=== PATIENT | female | born 1945 | race Caucasian/White ===

== ENCOUNTER 2020-03-08 15:20 | Emergency (ER) | payer MEDICARE ==
[~2020-03-08] VITALS: Ht 170.2 cm; Wt 100.0 kg
--- NOTE | 2020-03-08 15:32 | PHYS DOC ---
General Adult EDM: Chief Complaint: MULTIPLE TRAUMA/FALL HPI: HPI: Patient is a 75-year-old female who presents with head injury after a fall today out of her truck. Patient states "I was getting in the truck my pants were too tight so I tried to lift my leg and then I fell backwards". Patient has midl ine, hematoma to posterior head. Patient takes a low-dose aspirin daily. Patient denies loss of consciousness, dizziness. Patient denies back pain or midline neck tenderness. Patient unsure of last tetanus vaccination. (JAIRO OVALLE PIPING DRAFTER) Review of Systems: Review of Systems: Constitutional: Denies fever or chills Eyes: Denies change in visual acuity HENT: Denies nasal congestion or sore throat Respiratory: Denies cough or shortness of breath Cardiovascular: Denies chest pain or edema GI: Denies abdominal pain, nausea, vomiting, bloody stools or diarrhea : Denies dysuria Musculoskeletal: Denies back pain or joint pain Integument: Denies rash Neurologic: Denies headache, focal weakness or sensory changes Endocrine: Denies polyuria or polydipsia Lymphatic: Denies swollen glands Psychiatric: Denies depression or anxiety (JAIRO OVALLE PIPING DRAFTER) Physical Exam: PE: Constitutional: Well developed, well nourished, no acute distress, non-toxic appearance. [] HENT: Normocephalic, atraumatic, bilateral external ears normal, oropharynx moist, no oral exudates, nose normal. [] Eyes: PERRLA, EOMI, conjunctiva normal, no discharge. [] Neck: Normal range of motion, no tenderness, supple, no stridor. [] Cardiovascular:Heart rate regular rhythm, no murmur [] Lungs & Thorax: Bilateral breath sounds clear to auscultation [] Abdomen: Bowel sounds normal, soft, no tenderness, no masses, no pulsatile masses. [] Skin: Hematoma midline posterior head Back: No tenderness, no CVA tenderness. [] Extremities: No tenderness, no cyanosis, no clubbing, ROM intact, no edema. [] Neurologic: Alert and oriented X 3, normal motor function, normal sensory function, no focal deficits noted. [] Psychologic: Affect normal, judgement normal, mood normal. [] (JAIRO OVALLE PIPING DRAFTER) EKG: EKG: [] (JAIRO OVALLE APRN) Radiology/Procedures: Radiology/Procedures: []CT HEAD AND C-SPINE WO Clinical indications: Fall with head injury. NONCONTRAST HEAD CT COMPARISON: None available. Technique: Noncontrast axial cross sectional scanning of the head was performed. PQRS compliance Statement One or more of the following individualized dose reduction techniques were utilized for this study: 1. Automated exposure control 2. Adjustment of the mA and/or kV according to patient size 3. Use of iterative reconstruction technique Findings: No acute intracranial hemorrhage or midline shift or mass-effect or hydrocephalus or extra-axial fluid collection is seen. Moderate-sized area of encephalomalacia is seen involving the medial left frontal lobe with an overlying craniotomy. This may be secondary to old infarct or old trauma or surgical resection of a tumor. There is a moderate-sized subcutaneous soft tissue hematoma of the posterior right parietal region containing air consistent with an associated laceration injury. No skull fracture or pneumocephalus is seen. No opacification of the mastoid sinuses or the middle ear cavities or the paranasal sinuses is seen. The maxillary sinuses are not completely seen in this study. IMPRESSION: No acute intracranial abnormality is seen. CERVICAL SPINE CT WITHOUT CONTRAST TECHNIQUE: Noncontrast helical CT scanning of the cervical spine was performed. Multiplanar 2-D reconstructions were generated. FINDINGS: No acute fracture or discitis or lytic process is seen. Grade 1 anterolisthesis of C3-4 and C4-5 and T1-T2 is evident. There is severe degenerative disc space narrowing and endplate spurring at C5-6 and C6-7 and C7- T1 and T1-T2. Degenerative facet arthropathy is evident throughout the cervical spine. No perching of facet joints is seen. The spinous processes are intact. IMPRESSION: No acute fracture. Degenerative cervical spondylosis. Electronically signed by: Lei Aleman MD (03/08/2020 4:15 PM) [id number] (JAIRO OVALLE APRN) Heart Score: Risk Factors: Risk Factors: DM, Current or recent (<one month) smoker, HTN, HLP, family history of CAD, obesity. Risk Scores: Score 0 - 3: 2.5% MACE over next 6 weeks - Discharge Home Score 4 - 6: 20.3% MACE over next 6 weeks - Admit for Clinical Observation Score 7 - 10: 72.7% MACE over next 6 weeks - Early Invasive Strategies (JAIRO OVALLE APRN) Course & Med Decision Making: Course & Med Decision Making Pertinent Labs and Imaging studies reviewed. (See chart for details) [] 75-year-old female presents with hematoma to posterior head after fall getting into her truck. Bleeding controlled upon arrival. Head CT ordered to rule out intracranial hemorrhage or skull fracture. Denies midline neck tenderness or back pain. Denies headache, nausea, vomiting. CT head and cervical spine came back negative for intracranial hemorrhage or skull fracture. Patient was given Tdap. Patient is hemodynamically stable, alert and oriented x4.Denies any symptoms or pain at this time. Will discharge patient to home with . Explained to patient symptoms to look for and need to return to ER. (JAIRO OVALLE APRN) Course & Med Decision Making I oversaw care of patient while in ER. I reviewed case in its' entirety with CARE MANAGEMENT COORDINATOR. I agree with note, plan of care and dispo (JOSE LUIS ANGELES DO) Girish Disclaimer: Girish Disclaimer: This electronic medical record was generated, in whole or in part, using a voice recognition dictation system. (JAIRO OVALLE APRN) Departure Departure: Impression: Primary Impression: Head trauma Qualified Codes: S09.90XA - Unspecified injury of head, initial encounter Disposition: 01 DC HOME SELF CARE/HOMELESS Condition: STABLE Referrals: JOSE LUIS ANGELES DO Patient Instructions: Head Injury, Adult, [id number] Additional Instructions: You are seen in the emergency room today for head injury after falling backwards from your truck. Your CT of your head and cervical spine was negative for any intracranial hemorrhaging or skull fractures. Please return to the emergency room with any worsening symptoms or concerns. Follow-up with your primary care physician if needed for unresolved symptoms. Take Tylenol and ibuprofen for discomfort as you may be sore after your fall. You can also apply ice to the area to help with swelling and discomfort. EMERGENCY DEPARTMENT GENERAL DISCHARGE INSTRUCTIONS Thank you for coming to [facility] (ED) today and trusting us with you care. We trust that you had a positivie experience in our Emergency Department. If you wish to speak to the department management, you may call the director at [phone]. YOUR FOLLOW UP INSTRUCTIONS ARE FOLLOWS: 1. Do you have a private Doctor? If you do not have a private doctor, please ask for a resource list of physicians or clinics that may be able to assist you with follow up care. 2. The Emergency Physician has interpreted your x-rays. The X-Ray specialist will also review them. If there is a change in the findings, you will be notified in 48 hours when at all possible. 3. A lab test or culture has been done, your results will be reviewed and you will be notified if you need a change in treatment. ADDITIONAL INSTRUCTIONS AND INFORMATION: 1. Your care today has been supervised by a physician who is specially trained in emergency care. Many problems require more than one evaluation for a complete diagnosis and treatment. We recommend that you schedule your follow up appointment as recommended to ensure complete treatment of you illness or injury. If you are unable to obtain follow up care and continue to have a problem, or if your condition worsens, we recommend that you return to the ED. 2. We are not able to safely determine your condition over the phone nor are we able to give sound medical advice over the phone. For these safety reasons, if you call for medical advice we will ask you to come to the ED for further evaluation. 3. If you have any questions regarding these discharge instructions please call the ED at [phone]. SAFETY INFORMATION: In the interest of safety, wellness, and injury prevention; we encourage you to wear your sealbelt, if you smoke; quite smoking, and we encourage family to use a protective helmet for bicycling and other sporting events that present an increased risk for head injury. IF YOUR SYMPTOMS WORSEN OR NEW SYMPTOMS DEVELOP, OR YOU HAVE CONCERNS ABOUT YOUR CONDITION; OR IF YOUR CONDITION WORSENS WHILE YOU ARE WAITING FOR YOUR FOLLOW UP APPOINTMENT; EITHER CONTACT YOUR PRIMARY CARE DOCTOR, THE PHYSICIAN WHOSE NAME AND NUMBER YOU WERE GIVEN, OR RETURN TO THE ED IMMEDIATELY. JAIRO OVALLE APRN Mar 08, 2020 15:32 JOSE LUIS ANGELES DO Mar 09, 2020 14:48
[2020-03-08] MEDS ORDERED: DIPH,PERTUSS(ACELL),TET VAC/PF 0.5 ML SYRINGE. VAX IM ONE (15:45)
--- NOTE | 2020-03-08 16:17 | RAD ---
CT HEAD AND C-SPINE WO Clinical indications: Fall with head injury. NONCONTRAST HEAD CT COMPARISON: None available. Technique: Noncontrast axial cross sectional scanning of the head was performed. PQRS compliance Statement One or more of the following individualized dose reduction techniques were utilized for this study: 1. Automated exposure control 2. Adjustment of the mA and/or kV according to patient size 3. Use of iterative reconstruction technique Findings: No acute intracranial hemorrhage or midline shift or mass-effect or hydrocephalus or extra- axial fluid collection is seen. Moderate-sized area of encephalomalacia is seen involving the medial left frontal lobe with an overlying craniotomy. This may be secondary to old infarct or old trauma or surgical resection of a tumor. There is a moderate-sized subcutaneous soft tissue hematoma of the po sterior right parietal region containing air consistent with an associated laceration injury. No skul l fracture or pneumocephalus is seen. No opacification of the mastoid sinuses or the middle ear cavit ies or the paranasal sinuses is seen. The maxillary sinuses are not completely seen in this study. IMPRESSION: No acute intracranial abnormality is seen. CERVICAL SPINE CT WITHOUT CONTRAST TECHNIQUE: Noncontrast helical CT scanning of the cervical spine was performed. Multiplanar 2-D recon structions were generated. FINDINGS: No acute fracture or discitis or lytic process is seen. Grade 1 anterolisthesis of C3-4 and C4-5 and T1-T2 is evident. There is severe degenerative disc space narrowing and endplate spurring a t C5-6 and C6-7 and C7-T1 and T1-T2. Degenerative facet arthropathy is evident throughout the cervica l spine. No perching of facet joints is seen. The spinous processes are intact. IMPRESSION: No acute fracture. Degenerative cervical spondylosis. Electronically signed by: Lei Aleman MD (03/08/2020 4:15 PM) [place] [id number]
[2020-03-08 16:33] VITALS: BP 143/70
== END 2020-03-08 16:39 | disposition home or self-care (01) ==
LOC: ER 15:20
DX: S00.03XA Contusion of scalp, initial encounter (principal); W18.39XA Other fall on same level, initial encounter; Y93.89 Activity, other specified; Y92.89 Other specified places as the place of occurrence of the external cause; Y99.8 Other external cause status
CPT/HCPCS: 70450; 72125; 90471; 90715; 99285